=== PATIENT | female | born 1955 | race Two or more races ===

== ENCOUNTER 2024-11-12 20:42 | Inpatient (IN) | payer OTHER ==
[~2024-11-12] VITALS: Ht 160 cm; Wt 79.6 kg
--- NOTE | 2024-11-12 21:02 | ED.PDOC ---
History of Present Illness HPI Comments 68 y/o F with no known past medical history brought in by son for evaluation of confusion and left-sided weakness. Patient's son states she was last seen well 5 days ago. The patient lives alone, and son states he checks on her periodically. When he checked on her today, she was confused, demonstrated slu rred speech and was not responding appropriately to questions. He also notes she has been having weakness in her left leg for about a month. On my evaluation, patient denies any headache, vision changes, nausea or vomiting. She is oriented x 2, so history is limited. Patient's son notes that the patient's baseline mental status is oriented x4. Chief Complaint: Left Sided Weakness Time Seen by MD: 20:50 Reviewed Notes: Nurses Notes, Medications, Allergies Allergies: Coded Allergies: NO KNOWN ALLERGIES (Unverified , 11/12/24) Information Source: Relative (son) Mode of Arrival: Ambulatory Severity: Moderate Timing: Hours Duration: Since onset Prehospital treatment: None Past Medical History Past Medical History (Other): obesity Surgical History: Denies all surgeries SAMPLE BUILDER History: No Pertinent SAMPLE BUILDER History Family History Family History: Unknown Social History Smoker: Cigarettes Alcohol: Occasionally Drugs: Denies Drug Use Lives In: Home Unable to Obtain due to: Altered Mental Status Physical Exam General Appearance: No Apparent Distress, Obese HEENT: PERRL/EOMI, Other (No facial asymmetry. Moist mucous membranes.) Neck: Full Range of Motion, Non-Tender, Normal Inspection, Supple Respiratory: Lungs Clear, No Accessory Muscle Use, No Respiratory Distress, Normal Breath Sounds Cardiovascular: No Edema, No JVD, Regular Rate/Rhythm Breast Exam: Deferred Gastrointestinal: Non Tender, Soft Genitalia: Deferred Pelvic: Deferred Rectal: Deferred Extremities: Normal inspection, Normal range of motion, Non-tender, No pedal edema Neurologic: Alert (Oriented x2), car changer II-XII nml as Tested, Normal Affect, Normal Mood, Other (Ambulatory with a cane. Motor strength 5/5 right upper and lower extremities, 4/5 left upper and lower extremities. No pronator drift.) Cerebellar Function: NOT DONE Reflexes: NOT DONE Skin: Dry, Normal Color, Warm Lymphatic: NOT DONE Was a procedure done? Was a procedure done?: No EKG EKG : Comments Sinus rhythm, rate 96, normal [place] interval, QRS prolonged at 155, QTC prolonged at 515, left axis deviation, left bundle-branch block, lateral T-wave inversion with ST depression Differential Dx Considerations may include: CVA, TIA, intracranial mass lesion, other encephalopathy, infection such as UTI, meningitis or encephalitis, among others X-Ray, Labs, Meds, VS Vital Signs Date Time Temp Pulse Resp B/P (MAP) Pulse Ox O2 Delivery O2 Flow Rate FiO2 11/12/24 22:32 101 18 167/83 (111) 95 11/12/24 22:32 101 16 95 Room Air* 0 21 11/12/24 21:00 96 11/12/24 20:48 98.4 113 18 212/112 (145) 96 Lab Test 11/12/24 22:04 11/12/24 21:21 11/12/24 20:52 Range/Units Troponin I High Sensitivity 18 18 </=34 ng/L Sodium Level 144 136-145 mmol/L Potassium Level 4.1 3.5-5.1 mmol/L Chloride Level 107 98-107 mmol/L Carbon Dioxide Level 23 20-31 mmol/L Anion Gap 14 5-15 Blood Urea Nitrogen 21 9-23 mg/dL Creatinine 1.03 H 0.550-1.02 mg/dL Glomerular Filtration Rate Calc 59 >90 mL/min BUN/Creatinine Ratio 20.4 H 10.0-20.0 Serum Glucose 131 H 74-106 mg/dL Calcium Level 10.6 H 8.7-10.4 mg/dL Total Bilirubin 1.0 0.2-1.0 mg/dL Aspartate Amino Transferase (AST) 39 13-40 U/L Alanine Aminotransferase (ALT) 34 7-40 U/L Alkaline Phosphatase 76 46-116 U/L B-Type Natriuretic Peptide 69.26 0-100 pg/mL Total Protein 7.9 5.7-8.2 g/dL Albumin 5.3 H 3.2-4.8 g/dL POC Glucose 110 H 70-106 mg/dl PROCEDURE(s): HWOCT - HEAD WITHOUT CONTRAST REASON: aloc ORDER NUMBER(s): [id number], ACCESSION NUMBER(s): [id number] EXAM: CT HEAD WITHOUT CONTRAST INDICATION: aloc TECHNIQUE: CT of the head without intravenous contrast. Radiation Dose Information: CT Dose: CTDI volume is 50.22 mGy. Dose-length product is 805.23 mGy*cm The dose indicators for CT are the volume Computed Tomography (CT) Dose Index (CTDIvol) and the Dose Length Product (DLP), and are measured in units of mGy and mGy-cm, respectively. These indicators are not patient dose, but values generated from the CT scanner acquisition factors. The report includes radiation exposure data for exposures received during this examination. COMPARISON: None FINDINGS: There is no evidence of acute intracranial hemorrhage, extra-axial collection, mass effect, midline shift, herniation or hydrocephalus. Small 1 cm low-density area in the left basal ganglion consistent with a small lacunar infarct. Old lacunar infarct left basal ganglion and thalamus. The ventricles, sulci and cisterns are age appropriate. The azevedo-white differentiation is intact. Patchy periventricular and subcortical white matter hypoattenuation is nonspecific but may be related to small vessel ischemic disease. The visualized paranasal sinuses and mastoid air cells are clear. The surrounding soft tissues and osseous structures are unremarkable. IMPRESSION: 1. Old lacunar infarcts in the left basal ganglion and thalamus. 2. No acute intracranial hemorrhage. EDURE(s): CXRP - CHEST PORTABLE REASON: aloc ORDER NUMBER(s): [id number], ACCESSION NUMBER(s): [id number] CHEST RADIOGRAPH Indication: aloc Technique: Single frontal view of the chest was obtained Comparison: None FINDINGS: Lines and Tubes: None Lungs: Clear Pleura: No effusion. No pneumothorax. Cardiomediastinal contours: Unremarkable Bones: Unremarkable IMPRESSION: Clear lungs. X-Ray, Labs, Meds, VS Comment 68-year-old female with no known past medical history presenting with altered mental status and left-sided weakness. Last known well 5 days ago. Vitals remarkable for heart rate 113, BP 212/112 Exam remarkable for orientation x2, motor strength 4/5 left upper and lower extremities Rhythm strip independently interpreted by me: Sinus rhythm, rate 96, no ectopy. CT head IMPRESSION: 1. Old lacunar infarcts in the left basal ganglion and thalamus. 2. No acute intracranial hemorrhage. Chest x-ray unremarkable CBC pending, metabolic panel remarkable for creatinine 1.03, UA pending , BNP and 2 serial troponins negative. Patient treated with the following in the ED: Aspirin 325 mg p.o. On re-evaluation blood pressure is 167/83 and heart rate is 101. There have been no new neurologic changes. Plan is to admit the patient for brain MRI and Neurology evaluation. Time of 1ST Reevaluation: 21:20 Reevaluation 1ST: Unchanged Patient Education/Counseling: Other (patient is altered ) Family Education/Counseling: Diagnosis, Treatment Departure 1 Departure Time of Disposition: 01:11 Impression: Primary Impression: CVA (cerebral vascular accident) Qualified Codes: I63.9 - Cerebral infarction, unspecified Disposition: ADMITTED INPATIENT Admit to: Tele Condition: Guarded Critical Care Note Critical Care Time?: Yes (35 min-critical care time only, including multiple bedside re-evaluations, review of lab and imaging studies, and discussion of the case with the admitting provider. Patient is high risk for neurologic decompe nsation.) Stability Stability form required: No Heart Score Heart Score: Heart Score Response (Comments) Value History N/A 0 EKG N/A 0 Age N/A 0 Risk Factors N/A 0 Troponin N/A 0 Total 0 I personally scribed for KARINA BARRIOS MD ([email or web address]) on 11/12/24 at 21:01. Electronically submitted by Wilian Paige ([email or web address]). I personally scribed for KARINA BARRIOS MD ([email or web address]) on 11/12/24 at 21:17. Electronically submitted by Wilian Paige ([email or web address]). I personally scribed for KARINA BARRIOS MD ([email or web address]) on 11/12/24 at 21:23. Electronically submitted by Wilian Paige ([email or web address]). KARINA BARRIOS MD Nov 12, 2024 21:01
--- NOTE | 2024-11-12 21:24 | DVH ---
CHEST RADIOGRAPH Indication: aloc Technique: Single frontal view of the chest was obtained Comparison: None FINDINGS: Lines and Tubes: None Lungs: Clear Pleura: No effusion. No pneumothorax. Cardiomediastinal contours: Unremarkable Bones: Unremarkable IMPRESSION: Clear lungs.
--- NOTE | 2024-11-12 21:27 | DVH ---
EXAM: CT HEAD WITHOUT CONTRAST INDICATION: aloc TECHNIQUE: CT of the head without intravenous contrast. Radiation Dose Information: CT Dose: CTDI volume is 50.22 mGy. Dose-length product is 805.23 mGy*cm The dose indicators for CT are the volume Computed Tomography (CT) Dose Index (CTDIvol) and the Dose Length Product (DLP), and are measured in units of mGy and mGy-cm, respectively. These indicators are not patient dose, but values generated from the CT scanner acquisition factors. The report includes radiation exposure data for exposures received during this examination. COMPARISON: None FINDINGS: There is no evidence of acute intracranial hemorrhage, extra-axial collection, mass effect, midline s hift, herniation or hydrocephalus. Small 1 cm low-density area in the left basal ganglion consistent with a small lacunar infarct. Old lacunar infarct left basal ganglion and thalamus. The ventricles, sulci and cisterns are age appropriate. The azevedo-white differentiation is intact. Patchy periventricular and subcortical white matter hypoattenuation is nonspecific but may be related to small vessel ischemic disease. The visualized paranasal sinuses and mastoid air cells are clear. The surrounding soft tissues and osseous structures are unremarkable. IMPRESSION: 1. Old lacunar infarcts in the left basal ganglion and thalamus. 2. No acute intracranial hemorrhage.
[2024-11-12 22:06] LABS: Alanine Aminotransferase 34 U/L (7-40); Alkaline Phosphatase 76 U/L (46-116); Anion Gap 14 (5-15); Aspartate Aminotransferase 39 U/L (13-40); BUN/Creatinine Ratio 20.4 (10.0-20.0); Blood Urea Nitrogen 21 mg/dL (9-23); Carbon Dioxide 23 mmol/L (20-31); Potassium 4.1 mmol/L (3.5-5.1); Sodium 144 mmol/L (136-145)
[2024-11-12 22:07] LABS: Total Protein 7.9 g/dL (5.7-8.2)
[2024-11-12 22:15] LABS: Albumin 5.3 g/dL (3.2-4.8); Calcium 10.6 mg/dL (8.7-10.4); Chloride 107 mmol/L (98-107); Glucose 131 mg/dL (74-106)
[2024-11-12 22:32] VITALS: BP 167/83; PULSE 101; RESP 16; O2SAT 95
[2024-11-13 01:58] LABS: Basophils # (auto) 0.1 10 ^3/uL (0-0.2); Basophils % (auto) 0.7 % (0.0-2.0); Eosinophils # (auto) 0 10 ^3/uL (0-0.8); Eosinophils % (auto) 0.2 % (0.0-7.0); Hematocrit 50.5 % (36.0-46.0); Hemoglobin 16.8 g/dL (12.2-16.2); Lymphocytes # (auto) 1.5 10 ^3/uL (0.4-5.4); Lymphocytes % (auto) 13.6 % (10.0-50.0); Mean Corpuscular Hemoglobin 30.7 pg (28.0-32.0); Mean Corpuscular Hgb Conc. 33.2 g/dL (32.0-36.0); Mean Corpuscular Volume 92.6 fL (80.0-100.0); Monocytes # (auto) 0.3 10 ^3/uL (0-1.3); Monocytes % (auto) 2.7 % (0.0-12.0); Neutrophils # (auto) 9.1 10 ^3/uL (1.6-8.6); Neutrophils % (auto) 82.8 % (37.0-80.0); Nucleated Red Blood Cells % 0.6 %; Platelet Count (auto) 227 10^3/uL (140-450); Red Blood Cells 5.46 10^6/uL (4.0-5.20); Red Cell Distribution Width 13.1 % (11.8-14.3)
[2024-11-13] MEDS: ASPirin 325 MG TAB PO ONE (02:09)
[2024-11-13] MEDS ORDERED: METOPROLOL TARTRATE 25 MG TAB PO SCH (04:00)
[2024-11-13] MEDS ORDERED: ATORVASTATIN 20 MG TAB PO ONE (04:00)
[2024-11-13] MEDS ORDERED: ONDANSETRON HCL 4 MG/2 ML VIAL IV PRN (04:00)
[2024-11-13] MEDS ORDERED: hydrALAZINE HCL 20 MG/ML VL IV PRN (04:00)
[2024-11-13] MEDS ORDERED: ACETAMINOPHEN 325 MG TAB PO PRN (04:00)
--- NOTE | 2024-11-13 04:23 | DVHHP2 ---
History of Present Illness Reason for Visit: Slurred speech History of Present Illness 68-year-old female presents for evaluation of slurred speech. Patient presents accompanied by her son. He reports that he normally checks on his mother over the phone. He states that on Monday he called her and he noted her not making sense when speaking. He saw her yesterday and he noted her with slurred speech. He states that over the past month he has also noticed patient with weakness to her left side. The patient has not seen a primary care provider in over 30 years. No headache or blurred vision. Past Medical History None Past Surgical History None Family History Noncontributory Smoke: No ALCOHOL: none Drugs: None Lives: with Family Review of Systems Review of Systems Review of systems are currently negative otherwise addressed in HPI. Allergies: Coded Allergies: NO KNOWN ALLERGIES (Unverified , 11/12/24) Medications Current Medications Medications Dose Ordered Sig/Marie Route Start Time Stop Time Status Last Admin Dose Admin Metoprolol Tartrate 12.5 mg BID PO 11/13/24 04:00 Lisinopril 10 mg DAILY PO 11/13/24 10:00 Aspirin 162 mg DAILY PO 11/13/24 10:00 Atorvastatin Calcium 10 mg HS PO 11/13/24 22:00 Hydralazine HCl 10 mg Q6HP PRN IV 11/13/24 04:00 Ondansetron HCl 4 mg Q4HP PRN IV 11/13/24 04:00 Enoxaparin Sodium 40 mg DAILY SC 11/13/24 10:00 Acetaminophen 650 mg Q6HP PRN PO 11/13/24 04:00 Exam Vital Signs Vital Signs Date Time Temp Pulse Resp B/P (MAP) Pulse Ox O2 Delivery O2 Flow Rate FiO2 11/12/24 22:32 101 18 167/83 (111) 95 11/12/24 22:32 Room Air* 0 21 11/12/24 20:48 98.4 Exam Gen: 68-year-old female in mild distress Skin: Warm, dry, normal color and texture, no rash. HEENT: Normocephalic atraumatic, mucous membranes moist and pink. Neck: Cervical and supraclavicular nodes normal without enlargement, trachea is midline, thyroid gland is normal without masses. Pulmonary: Clear to auscultation and percussion bilaterally. Cardiac: Regular rate and rhythm. No murmur Abdomen: Soft, nontender, nondistended, bowel sounds present all 4 quadrants, no guarding, no rigidity, no organomegaly. Extremities: No cyanosis, clubbing, no edema Neuro: Cranial nerves II through XII grossly intact, slurred speech, LUE4/5, LLE4/5, RUE/RLE 5/5 Labs/Xrays ORDERING PHYSICIAN: KARINA BARRIOS MD PROCEDURE(s): CXRP - CHEST PORTABLE REASON: aloc ORDER NUMBER(s): [id number], ACCESSION NUMBER(s): [id number] CHEST RADIOGRAPH Indication: aloc Technique: Single frontal view of the chest was obtained Comparison: None FINDINGS: Lines and Tubes: None Lungs: Clear Pleura: No effusion. No pneumothorax. Cardiomediastinal contours: Unremarkable Bones: Unremarkable IMPRESSION: Clear lungs. RING PHYSICIAN: KARINA BARRIOS MD PROCEDURE(s): HWOCT - HEAD WITHOUT CONTRAST REASON: aloc ORDER NUMBER(s): [id number], ACCESSION NUMBER(s): [id number] EXAM: CT HEAD WITHOUT CONTRAST INDICATION: aloc TECHNIQUE: CT of the head without intravenous contrast. Radiation Dose Information: CT Dose: CTDI volume is 50.22 mGy. Dose-length product is 805.23 mGy*cm The dose indicators for CT are the volume Computed Tomography (CT) Dose Index (CTDIvol) and the Dose Length Product (DLP), and are measured in units of mGy and mGy-cm, respectively. These indicators are not patient dose, but values generated from the CT scanner acquisition factors. The report includes radiation exposure data for exposures received during this examination. COMPARISON: None FINDINGS: There is no evidence of acute intracranial hemorrhage, extra-axial collection, mass effect, midline shift, herniation or hydrocephalus. Small 1 cm low-density area in the left basal ganglion consistent with a small lacunar infarct. Old lacunar infarct left basal ganglion and thalamus. The ventricles, sulci and cisterns are age appropriate. The azevedo-white differentiation is intact. Patchy periventricular and subcortical white matter hypoattenuation is nonspecific but may be related to small vessel ischemic disease. The visualized paranasal sinuses and mastoid air cells are clear. The surrounding soft tissues and osseous structures are unremarkable. IMPRESSION: 1. Old lacunar infarcts in the left basal ganglion and thalamus. 2. No acute intracranial hemorrhage. Labs Test 11/13/24 01:21 11/12/24 22:04 11/12/24 21:21 11/12/24 20:52 Range/Units White Blood Count 11.0 H 4.4-10.8 10^3/uL Red Blood Count 5.46 H 4.0-5.20 10^6/uL Hemoglobin 16.8 H 12.2-16.2 g/dL Hematocrit 50.5 H 36.0-46.0 % Mean Corpuscular Volume 92.6 80.0-100.0 fL Mean Corpuscular Hemoglobin 30.7 28.0-32.0 pg Mean Corpuscular Hemoglobin Concent 33.2 32.0-36.0 g/dL Red Cell Distribution Width 13.1 11.8-14.3 % Platelet Count 227 140-450 10^3/uL Mean Platelet Volume 11.5 H 6.9-10.8 fL Neutrophils (%) (Auto) 82.8 H 37.0-80.0 % Lymphocytes (%) (Auto) 13.6 10.0-50.0 % Monocytes (%) (Auto) 2.7 0.0-12.0 % Eosinophils (%) (Auto) 0.2 0.0-7.0 % Basophils (%) (Auto) 0.7 0.0-2.0 % Neutrophils # (Auto) 9.1 H 1.6-8.6 10 ^3/uL Lymphocytes # (Auto) 1.5 0.4-5.4 10 ^3/uL Monocytes # (Auto) 0.3 0-1.3 10 ^3/uL Eosinophils # (Auto) 0 0-0.8 10 ^3/uL Basophils # (Auto) 0.1 0-0.2 10 ^3/uL Nucleated Red Blood Cells 0.6 % Troponin I High Sensitivity 18 </=34 ng/L Sodium Level 144 136-145 mmol/L Potassium Level 4.1 3.5-5.1 mmol/L Chloride Level 107 98-107 mmol/L Carbon Dioxide Level 23 20-31 mmol/L Anion Gap 14 5-15 Blood Urea Nitrogen 21 9-23 mg/dL Creatinine 1.03 H 0.550-1.02 mg/dL Glomerular Filtration Rate Calc 59 >90 mL/min BUN/Creatinine Ratio 20.4 H 10.0-20.0 Serum Glucose 131 H 74-106 mg/dL Calcium Level 10.6 H 8.7-10.4 mg/dL Total Bilirubin 1.0 0.2-1.0 mg/dL Aspartate Amino Transferase (AST) 39 13-40 U/L Alanine Aminotransferase (ALT) 34 7-40 U/L Alkaline Phosphatase 76 46-116 U/L B-Type Natriuretic Peptide 69.26 0-100 pg/mL Total Protein 7.9 5.7-8.2 g/dL Albumin 5.3 H 3.2-4.8 g/dL POC Glucose 110 H 70-106 mg/dl Assessment/Plan Assessment/Plan Assessment Cerebrovascular accident, nonhemorrhagic Hypertensive urgency Acute kidney injury Plan Admit the patient to telemetry to the hospitalist MRI of the brain pending Neurology consult Start metoprolol/lisinopril As needed antihypertensives Aspirin/atorvastatin Continue treatment per orders. Plan discussed with: Patient My Orders Orders - JUANI JIMENEZ AGACNP Procedure Category Date Status Time Metoprolol Tartrate PHA 11/13/24 In Process Tablet (Lopressor Ta 04:00 Lisinopril Tablet PHA 11/13/24 In Process (Zestril Tablet) 10:00 Aspirin Tablet PHA 11/13/24 In Process 10:00 Atorvastatin (Lipitor) PHA 11/13/24 In Process 22:00 Hydralazine Injection PHA 11/13/24 In Process (Apresoline Inject 04:00 Brain Head Wo Contrast MRI 11/13/24 Logged 03:59 * Neurology Consult CONS 11/13/24 Transmitted 03:59 Basic Metabolic Panel LAB 11/14/24 Verified 04:00 Admit ADMIT 11/13/24 Transmitted 03:59 Ondansetron Hcl PHA 11/13/24 In Process (Zofran) 04:00 Enoxaparin Sodium PHA 11/13/24 In Process (Lovenox) 10:00 Cardiac DIET 11/13/24 Transmitted Diet-2gna,Lofat,Lochol Breakfast Condition: Stable JOLANTA 11/13/24 In Process 03:59 Acetaminophen Tablet PHA 11/13/24 In Process (Tylenol Tablet) 04:00 Bedrest With Bathroom JOLANTA 11/13/24 In Process Privileg 03:59 Date of Service: Nov 13, 2024 Billing Provider: JUANI JIMENEZ Common Visit Codes: [id number] INP/OBS CARE (HIGH) JUANI JIMENEZ Nov 13, 2024 04:23
[2024-11-13] MEDS ORDERED: ASPirin 81 mg TAB PO SCH (10:00)
[2024-11-13] MEDS ORDERED: LISINOPRIL 5 MG TAB PO SCH (10:00)
[2024-11-13] MEDS ORDERED: ENOXAPARIN SOD 40 MG/0.4 ML SYRINGE SC SCH (10:00)
[2024-11-13] MEDS ORDERED: ATORVASTATIN 20 MG TAB PO SCH (22:00)
--- NOTE | 2024-11-14 10:20 | ECG ---
[facility] Test Date: 2024-11-12 Test Time: 21:00:04 Pat Name: HALEY ROBERTS Department: ED Room: [address] [place] [address] A Gender: F Computer Technician: CARLOS EDUARDO : 1955 Requested By: KARINA AGUILAR Order Number: [id number] Reading MD: Nahun Gutierrez Measurements Intervals [place] Rate: 96 P: 63 VT: 162 QRS: -55 QRSD: 155 T: 110 QT: 407 QTc: 515 Interpretive Statements Sinus rhythm Consider left atrial enlargement Left bundle branch block Electronically Signed On 11-14-2024 22:12:23 PST by Nahun Gutierrez Please click the below link to view image of tracing.
== END 2024-11-13 04:25 | disposition left against medical advice (07) | DRG 948 ==
LOC: ER 20:42 → OVERFLOW 11-13 03:59 → ER 11-13 04:25
PROVIDERS: ADMIT Internal Medicine; ATTEND Internal Medicine
DX: R53.1 Weakness (principal); N17.9 Acute kidney failure, unspecified; I16.0 Hypertensive urgency; Z53.29 Procedure and treatment not carried out because of patient's decision for other reasons; Z79.899 Other long term (current) drug therapy
CPT/HCPCS: 36415; 70450; 71045; 80053; 82962; 83880; 84484; 85025; 93005; 99291; G0378